=== PATIENT | female | born 1960 | race Caucasian/White ===

== ENCOUNTER 2019-09-16 17:07 | Emergency (ER) | payer BC ==
[~2019-09-16] VITALS: Ht 152.4 cm; Wt 64.4 kg
[~2019-09-16 17:07] MED LIST: ALBU90OI6 INH; ARIPIPRAZOLE2 MG PO; BUDE6HFA INH; BUSP15 PO; CLOR7.5 PO; CYCL10 PO; Hydrocortisone5 MG PO; Norco 10-325 T1 EACH PO; SULF500A PO; VENL150ER PO
[2019-09-16 17:52] LABS: BASOPHILS ABSOLUTE AUTO 0.03 K/mm3 (0.00-0.23); BASOPHILS PERCENT AUTO 0 % (0-2); EOSINOPHILS PERCENT AUTO 0 % (0-6); Hematocrit 37.7 % (33.0-51.0); IMMATURE GRAN ABSOLUTE AUTO 0.04 K/mm3 (0.00-0.10); IMMATURE GRAN PERCENT AUTO 0 % (0-1); LYMPHOCYTES ABSOLUTE AUTO 1.06 K/mm3 (0.84-5.20); LYMPHOCYTES PERCENT AUTO 10 % (21-46); MONOCYTES ABSOLUTE AUTO 0.57 K/mm3 (0.16-1.47); MONOCYTES PERCENT AUTO 6 % (4-13); Mean Corpuscular HGB 30.8 pg (26.0-34.0); Mean Corpuscular HGB Conc 31.8 g/dL (31.5-36.5); Mean Corpuscular Volume 97 fL (80-100); Mean Platelet Volume 10.6 fL (9.1-12.4); NEUTROPHILS ABSOLUTE AUTO 8.67 K/mm3 (1.96-9.15); NEUTROPHILS PERCENT AUTO 84 % (41-73); Platelet Count 255 K/mm3 (150-400); RDW Coefficient Variation 12.3 % (11.7-14.2); White Blood Cell Count 10.37 K/mm3 (4.00-11.30)
[2019-09-16 18:06] LABS: Anion Gap 7 mmol/L (6-16); Blood Urea Nitrogen 9 mg/dL (8-24); Bun/Creatinine Ratio 14.2 (12.0-20.0); CO2, Blood 25 mmol/L (21-32); Calcium, Blood 8.7 mg/dL (8.5-10.1); Chloride, Blood 104 mmol/L (98-108); Creatinine, Blood 0.63 mg/dL (0.40-1.00); Glomerular Filtration Rate >60 (60-); Glucose, Blood 113 mg/dL (70-99); Potassium, Blood 3.7 mmol/L (3.5-5.5); Sodium, Blood 136 mmol/L (136-145)
[2019-09-16] MEDS ORDERED: ONDA4ODT MM (21:06)
[2019-09-16] MEDS ORDERED: PROC5 PO (21:06)
[2019-09-16] MEDS ORDERED: Esgic Tablet1 EACH PO (21:06)
[2019-09-16 21:30] LABS: Influenza A Negative (NEGATIVE); Influenza B Negative (NEGATIVE)
== END 2019-09-16 21:30 | disposition home or self-care (01) ==
LOC: ER 17:07
PROVIDERS: Physician Assistant
DX: R51 Headache (principal); R11.2 Nausea with vomiting, unspecified; M48.54XA Collapsed vertebra, not elsewhere classified, thoracic region, initial encounter for fracture; F17.210 Nicotine dependence, cigarettes, uncomplicated; Z88.0 Allergy status to penicillin; Z88.1 Allergy status to other antibiotic agents; Z88.8 Allergy status to other drugs, medicaments and biological substances; Z88.5 Allergy status to narcotic agent; Z79.899 Other long term (current) drug therapy
CPT/HCPCS: 36415; 71046; 80048; 85025; 87804; 96374; 96375; 99283-25; A9270-GY; J0780; J1200; J1885; J2405; J7030

== ENCOUNTER 2021-10-08 19:06 | Emergency (ER) | payer MEDICARE ==
[~2021-10-08] VITALS: Ht 152.4 cm; Wt 64.0 kg
[~2021-10-08 19:06] MED LIST changes: +Esgic Tablet1 EACH PO; +ONDA4ODT MM; +PROC5 PO
[2021-10-08] MEDS ORDERED: CITALOPRAM HBR PO (20:12)
[2021-10-08] MEDS ORDERED: OXYCODONE-ACET1 EAC2 PO (20:12)
[2021-10-08] MEDS ORDERED: BUSPIRONE HCL7.5 M1 PO (20:14)
[2021-10-08] MEDS ORDERED: KLOR-CON 1010 ME5 PO (20:15)
== END 2021-10-08 23:40 | disposition home or self-care (01) ==
LOC: ER 19:06
DX: S52.572A Other intraarticular fracture of lower end of left radius, initial encounter for closed fracture (principal); S52.602A Unspecified fracture of lower end of left ulna, initial encounter for closed fracture; W19.XXXA Unspecified fall, initial encounter; Z79.899 Other long term (current) drug therapy; Z88.0 Allergy status to penicillin; Z88.1 Allergy status to other antibiotic agents; Z79.891 Long term (current) use of opiate analgesic; G43.909 Migraine, unspecified, not intractable, without status migrainosus; J44.9 Chronic obstructive pulmonary disease, unspecified; F17.210 Nicotine dependence, cigarettes, uncomplicated
CPT/HCPCS: 25605; 73090; 96374; 99283-25; A9270; J1170

== ENCOUNTER 2021-10-15 13:10 | Day surgery (SDC) | payer MEDICARE ==
[~2021-10-15] VITALS: Ht 149.9 cm; Wt 63.5 kg
[~2021-10-15 13:10] MED LIST changes: +BUSPIRONE HCL7.5 M1 PO; +CITALOPRAM HBR PO; +KLOR-CON 1010 ME5 PO; +OXYCODONE-ACET1 EAC2 PO
== END 2021-10-15 17:22 | disposition home or self-care (01) ==
LOC: ORSCSDS 13:10
PROVIDERS: Orthopaedic Surgery
PROC: 0PSL04Z Reposition Left Ulna with Internal Fixation Device, Open Approach (ICD-10-PCS; principal; 2021-10-15 13:45)
PROC: 0PSJ04Z Reposition Left Radius with Internal Fixation Device, Open Approach (ICD-10-PCS; principal; 2021-10-15 13:45)
DX: S52.502A Unspecified fracture of the lower end of left radius, initial encounter for closed fracture (principal); S52.602A Unspecified fracture of lower end of left ulna, initial encounter for closed fracture; J44.9 Chronic obstructive pulmonary disease, unspecified; F17.210 Nicotine dependence, cigarettes, uncomplicated; F41.9 Anxiety disorder, unspecified; Z79.899 Other long term (current) drug therapy
CPT/HCPCS: A9270; C1713; J1100; J1170; J2250; J2405; J2704; J2795; J3010; J7120

== ENCOUNTER 2023-06-20 18:48 | Emergency (ER) | payer MEDICARE ==
[~2023-06-20] VITALS: Ht 144.8 cm; Wt 63.5 kg
[2023-06-20 18:56] VITALS: BP 143/58
[2023-06-20] MEDS ORDERED: CARBIDOPA-LEVO1 EA21 PO (19:22)
[2023-06-20] MEDS ORDERED: NEURONTIN300 MG PO (19:22)
[2023-06-20] MEDS ORDERED: BUSPIRONE HCL7.5 M6 PO (19:23)
[2023-06-20] MEDS ORDERED: ESCITALOPRAM OXA5 MG PO (19:23)
[2023-06-20] MEDS ORDERED: [UNRECOGNIZED DRUG - CODE] PO (19:23)
[2023-06-20] MEDS ORDERED: Ventolin/Prove6.7 GM (19:24)
[2023-06-20] MEDS ORDERED: ARIPIPRAZOLE10 M4 PO (19:24)
[2023-06-20] MEDS ORDERED: SPIRONOLACTONE25 MG PO (19:24)
== END 2023-06-20 21:08 | disposition home or self-care (01) ==
LOC: ER 18:48
DX: M25.562 Pain in left knee (principal); J44.9 Chronic obstructive pulmonary disease, unspecified; F17.210 Nicotine dependence, cigarettes, uncomplicated; Z88.0 Allergy status to penicillin; Z88.1 Allergy status to other antibiotic agents; Z88.6 Allergy status to analgesic agent; Z88.8 Allergy status to other drugs, medicaments and biological substances; Z79.899 Other long term (current) drug therapy
CPT/HCPCS: 73560-LT; 93971; 96372; 99284-25; J1885

== ENCOUNTER 2023-11-12 00:50 | Emergency (ER) | payer MEDICARE, OTHER ==
[~2023-11-12] VITALS: Ht 144.8 cm; Wt 65.3 kg
[~2023-11-12 00:50] MED LIST changes: +ARIPIPRAZOLE10 M4 PO; +BUSPIRONE HCL7.5 M6 PO; +CARBIDOPA-LEVO1 EA21 PO; +ESCITALOPRAM OXA5 MG PO; +NEURONTIN300 MG PO; +SPIRONOLACTONE25 MG PO; +Ventolin/Prove6.7 GM; +[UNRECOGNIZED DRUG - CODE] PO
[2023-11-12 05:45] VITALS: BP 143/71
== END 2023-11-12 06:21 | disposition home or self-care (01) ==
LOC: ER 00:50
DX: M80.88XA Other osteoporosis with current pathological fracture, vertebra(e), initial encounter for fracture (principal); F17.210 Nicotine dependence, cigarettes, uncomplicated
CPT/HCPCS: 72070; 72100; 99283-25; A9270

== ENCOUNTER 2023-11-16 10:51 | Emergency (ER) | payer MEDICARE, OTHER ==
[~2023-11-16] VITALS: Ht 144.8 cm; Wt 63.5 kg
[2023-11-16 11:20] VITALS: BP 113/84
[2023-11-16] MEDS ORDERED: Percocet 5-3251 EACH PO (12:05)
== END 2023-11-16 12:27 | disposition home or self-care (01) ==
LOC: ER 10:51
DX: S22.050A Wedge compression fracture of T5-T6 vertebra, initial encounter for closed fracture (principal); S22.060A Wedge compression fracture of T7-T8 vertebra, initial encounter for closed fracture; J44.9 Chronic obstructive pulmonary disease, unspecified; G43.909 Migraine, unspecified, not intractable, without status migrainosus; F17.210 Nicotine dependence, cigarettes, uncomplicated; Z87.39 Personal history of other diseases of the musculoskeletal system and connective tissue; Z79.899 Other long term (current) drug therapy; Z88.0 Allergy status to penicillin; Z88.1 Allergy status to other antibiotic agents; Z88.6 Allergy status to analgesic agent; Z88.8 Allergy status to other drugs, medicaments and biological substances; W19.XXXA Unspecified fall, initial encounter
CPT/HCPCS: 96372; 99283-25; A9270; J1885

== ENCOUNTER 2024-09-07 18:54 | Emergency (ER) | payer MEDICARE, OTHER ==
[~2024-09-07] VITALS: Ht 144.8 cm; Wt 69.4 kg
[~2024-09-07 18:54] MED LIST changes: +Percocet 5-3251 EACH PO
[2024-09-07 19:52] LABS: BASOPHILS ABSOLUTE AUTO 0.04 K/mm3 (0.00-0.23); BASOPHILS PERCENT AUTO 1 % (0-2); EOSINOPHILS ABSOLUTE AUTO 0.14 K/mm3 (0.00-0.68); EOSINOPHILS PERCENT AUTO 2 % (0-6); Hematocrit 33.8 % (33.0-51.0); Hemoglobin 10.5 g/dL (11.5-16.0); IMMATURE GRAN ABSOLUTE AUTO 0.03 K/mm3 (0.00-0.10); IMMATURE GRAN PERCENT AUTO 0 % (0-1); LYMPHOCYTES ABSOLUTE AUTO 2.14 K/mm3 (0.84-5.20); LYMPHOCYTES PERCENT AUTO 26 % (21-46); MONOCYTES ABSOLUTE AUTO 0.63 K/mm3 (0.16-1.47); MONOCYTES PERCENT AUTO 8 % (4-13); Mean Corpuscular HGB 31.1 pg (26.0-34.0); Mean Corpuscular HGB Conc 31.1 g/dL (31.5-36.5); Mean Corpuscular Volume 100 fL (80-100); Mean Platelet Volume 10.5 fL (9.1-12.4); NEUTROPHILS ABSOLUTE AUTO 5.22 K/mm3 (1.96-9.15); NEUTROPHILS PERCENT AUTO 64 % (41-73); Platelet Count 232 K/mm3 (150-400); RDW Coefficient Variation 13.2 % (11.7-14.2); RDW Standard Deviation 49.1 fL (35.1-46.3); Red Blood Cell Count 3.38 M/mm3 (3.80-5.20)
[2024-09-07 20:16] LABS: Albumin, Blood 3.6 g/dL (3.4-5.0); Bilirubin, Total 0.3 mg/dL (0.1-1.0); Bun/Creatinine Ratio 16.6 (12.0-20.0); Calcium, Blood 8.8 mg/dL (8.5-10.1); Creatinine, Blood 0.9 mg/dL (0.40-1.00); Globulin, Blood 3.5 g/dL (2.2-4.0); Potassium, Blood 4.7 mmol/L (3.5-5.5); Total Protein, Blood 7.1 g/dL (6.4-8.2)
[2024-09-07] MEDS ORDERED: FURO20 PO (22:37)
[2024-09-07 22:48] VITALS: BP 115/70
== END 2024-09-07 22:49 | disposition home or self-care (01) ==
LOC: ER 18:54
PROVIDERS: Student in an Organized Health Care Education/Training Program
DX: R60.9 Edema, unspecified (principal); J44.9 Chronic obstructive pulmonary disease, unspecified; G43.909 Migraine, unspecified, not intractable, without status migrainosus; F17.210 Nicotine dependence, cigarettes, uncomplicated; Z88.0 Allergy status to penicillin; Z88.1 Allergy status to other antibiotic agents; Z88.6 Allergy status to analgesic agent; Z88.8 Allergy status to other drugs, medicaments and biological substances; Z79.899 Other long term (current) drug therapy
CPT/HCPCS: 71046; 80053; 83880; 84484; 85025; 93005; 93010; 99284-25

== ENCOUNTER 2024-09-11 17:17 | Emergency (ER) | payer MEDICARE, OTHER ==
[~2024-09-11] VITALS: Ht 144.8 cm; Wt 70.3 kg
[~2024-09-11 17:17] MED LIST changes: +FURO20 PO
[2024-09-11 18:02] LABS: BASOPHILS ABSOLUTE AUTO 0.04 K/mm3 (0.00-0.23); BASOPHILS PERCENT AUTO 1 % (0-2); EOSINOPHILS ABSOLUTE AUTO 0.18 K/mm3 (0.00-0.68); EOSINOPHILS PERCENT AUTO 3 % (0-6); Hematocrit 32.1 % (33.0-51.0); Hemoglobin 9.8 g/dL (11.5-16.0); IMMATURE GRAN ABSOLUTE AUTO 0.02 K/mm3 (0.00-0.10); IMMATURE GRAN PERCENT AUTO 0 % (0-1); LYMPHOCYTES PERCENT AUTO 23 % (21-46); MONOCYTES ABSOLUTE AUTO 0.53 K/mm3 (0.16-1.47); MONOCYTES PERCENT AUTO 8 % (4-13); Mean Corpuscular HGB 30.8 pg (26.0-34.0); Mean Corpuscular HGB Conc 30.5 g/dL (31.5-36.5); Mean Corpuscular Volume 101 fL (80-100); Mean Platelet Volume 10.3 fL (9.1-12.4); NEUTROPHILS ABSOLUTE AUTO 4.31 K/mm3 (1.96-9.15); NEUTROPHILS PERCENT AUTO 66 % (41-73); Platelet Count 229 K/mm3 (150-400); RDW Standard Deviation 48.1 fL (35.1-46.3); Red Blood Cell Count 3.18 M/mm3 (3.80-5.20); White Blood Cell Count 6.58 K/mm3 (4.00-11.30)
[2024-09-11 18:18] LABS: Albumin, Blood 3.2 g/dL (3.4-5.0); Albumin/Globulin Ratio 0.9 (0.8-1.8); Bilirubin, Total 0.3 mg/dL (0.1-1.0); Bun/Creatinine Ratio 18.9 (12.0-20.0); Calcium, Blood 8.4 mg/dL (8.5-10.1); Creatinine, Blood 1.06 mg/dL (0.40-1.00); Globulin, Blood 3.4 g/dL (2.2-4.0); Total Protein, Blood 6.6 g/dL (6.4-8.2)
[2024-09-11] MEDS ORDERED: Ketorolac Tromethamine 30mg Vial IV ONE (21:55)
[2024-09-11 22:30] VITALS: BP 131/73
[2024-09-11] MEDS ORDERED: Doxycycline Hyclate 100 MG TAB PO ONE (23:40)
[2024-09-11] MEDS ORDERED: RX PP HYDROcodone-APAP 1 Prepack/30MLBTL UD ONE (23:40)
[2024-09-11] MEDS ORDERED: DOXY100 PO (23:43)
== END 2024-09-12 00:02 | disposition home or self-care (01) ==
LOC: ER 17:17
PROVIDERS: Physician Assistant
DX: L03.115 Cellulitis of right lower limb (principal); M79.605 Pain in left leg; R60.9 Edema, unspecified; J44.9 Chronic obstructive pulmonary disease, unspecified; G43.909 Migraine, unspecified, not intractable, without status migrainosus; Z88.0 Allergy status to penicillin; Z88.8 Allergy status to other drugs, medicaments and biological substances; Z88.1 Allergy status to other antibiotic agents; Z88.6 Allergy status to analgesic agent; Z79.899 Other long term (current) drug therapy
CPT/HCPCS: 80053; 83880; 85025; 93971; 96374; 99284-25; A9270; J1885

== ENCOUNTER 2025-10-15 12:26 | Day surgery (SDC) | payer MEDICARE ==
[~2025-10-15] VITALS: Ht 144.8 cm; Wt 70.1 kg
[~2025-10-15 12:26] MED LIST changes: +DOXY100 PO; +K-Dur20 MEQ PO; -KLOR-CON 1010 ME5 PO; +SULF500 PO
[2025-10-15] MEDS ORDERED: ELIQUIS5 M3 PO (12:57)
[2025-10-15] MEDS ORDERED: BUDESONIDE-FO10.2 G2 INH (13:05)
[2025-10-15] MEDS ORDERED: Benzocaine Oral Spray 0.5ML UD ONE (13:44)
[2025-10-15] MEDS ORDERED: Albuterol 2.5 MG/3 ML VIAL ONE (13:44)
[2025-10-15 15:26] VITALS: BP 110/82
== END 2025-10-15 15:31 | disposition home or self-care (01) ==
LOC: ORSCSDS 12:26
PROVIDERS: Specialist
PROC: 0DBE8ZX Excision of Large Intestine, Via Natural or Artificial Opening Endoscopic, Diagnostic (ICD-10-PCS; principal; 2025-10-15 14:00)
PROC: 0DB98ZX Excision of Duodenum, Via Natural or Artificial Opening Endoscopic, Diagnostic (ICD-10-PCS; principal; 2025-10-15 14:00)
PROC: 0DB68ZX Excision of Stomach, Via Natural or Artificial Opening Endoscopic, Diagnostic (ICD-10-PCS; principal; 2025-10-15 14:00)
DX: D50.9 Iron deficiency anemia, unspecified (principal); K44.9 Diaphragmatic hernia without obstruction or gangrene; K64.8 Other hemorrhoids; K57.30 Diverticulosis of large intestine without perforation or abscess without bleeding; Z86.0101 Personal history of adenomatous and serrated colon polyps; Z86.0102 Personal history of hyperplastic colon polyps; G47.33 Obstructive sleep apnea (adult) (pediatric); J44.9 Chronic obstructive pulmonary disease, unspecified; R00.1 Bradycardia, unspecified; E66.9 Obesity, unspecified; Z68.33 Body mass index [BMI] 33.0-33.9, adult; Z79.01 Long term (current) use of anticoagulants; Z79.899 Other long term (current) drug therapy; F17.210 Nicotine dependence, cigarettes, uncomplicated
CPT/HCPCS: 88305; 88342; A9270; J2704; J7120